=== PATIENT | male | born 1980 | race Two or more races ===

== ENCOUNTER 2025-01-18 11:18 | Inpatient (IN) | payer OTHER ==
[~2025-01-18] VITALS: Ht 180.3 cm; Wt 136.4 kg
[2025-01-18 12:11] LABS: BASOPHILS % (AUTO) 0.5 % (0.0-2.0); EOSINOPHILS % (AUTO) 1.3 % (1.0-6.0); HEMATOCRIT 40.2 % (41-53); HEMOGLOBIN 13.8 g/dL (13.5-17.5); LYMPHOCYTES # (AUTO) 1.9 K/uL (1.0-4.8); LYMPHOCYTES % (AUTO) 21.4 % (22.0-44.0); MEAN CORPUSCULAR HEMOGLOBIN 30.5 pg (26.0-34.0); MEAN CORPUSCULAR HGB CONC 34.3 G/dL (31.0-37.0); MEAN CORPUSCULAR VOLUME 89 fL (80-100); MONOCYTES # (AUTO) 0.8 K/uL (0.1-1.0); MONOCYTES % (AUTO) 9.5 % (2.0-9.0); NEUTROPHILS % (AUTO) 67.3 % (40.0-70.0); PLATELET COUNT (AUTO) 324 K/uL (150-450); RED BLOOD CELL COUNT(AUTO) 4.53 MIL/uL (4.50-5.90); RED CELL DISTRIBUTION WIDTH 14.1 % (11.5-14.5); WHITE BLOOD COUNT (AUTO) 8.9 K/uL (4.5-11.0)
[2025-01-18 12:26] LABS: ANION GAP 7 mmol/L (8-16); CALCIUM, TOTAL 8.8 mg/dL (8.8-10.5); CARBON DIOXIDE 28 mmol/L (22-29); CHLORIDE 103 mmol/L (98-107); CREATININE 1.28 mg/dL (0.60-1.30); GLOMERULAR FILTR. RATE CALC > 60 mL/min (>60); GLUCOSE,RANDOM 84 mg/dL (70-110); POTASSIUM 3.7 mmol/L (3.5-5.1); SODIUM SERUM 138 mmol/L (136-145); UREA NITROGEN, BLOOD 12 mg/dL (7-18)
[2025-01-18] MEDS: LIDOCAINE 1% 10 ML VIAL SQ ONE (12:54)
[2025-01-18] MEDS ORDERED: MAGNESIUM HYDROXIDE SUSPENSION 30 ML UDCUP PO PRN (13:15)
[2025-01-18] MEDS: POVIDONE-IODINE 10% 15 ML SOLUTION UD TP ONE (13:27)
[2025-01-18] MEDS: CeFAZolin 1 GM/DEXTROSE 50 ML IV ONE (13:45)
[2025-01-18] MEDS: ACETAMINOPHEN 325 MG TABLET PO PRN (14:29)
[2025-01-18] MEDS: PIPERACILLIN/TAZO 3.375 GM/D5W 50 ML IV ONE (14:29)
[2025-01-18 15:26] VITALS: BP 112/66; PULSE 72; RESP 18; TEMP 98.2; O2SAT 96
[2025-01-18] MEDS: VANCOMYCIN 1.75GM/WATER(PEG) 350 ML IV ONE (15:39)
[2025-01-18 18:13] LABS: APPEARANCE,URINE CLEAR (CLEAR); BILIRUBIN,URINE NEGATIVE (NEGATIVE); COLOR,URINE YELLOW (YELLOW); GLUCOSE, URINE (UA) NEGATIVE (NEGATIVE); LEUKOCYTE ESTERASE ,URINE NEGATIVE (NEGATIVE); NITRATE,URINE NEGATIVE (NEGATIVE); OCCULT BLOOD,URINE NEGATIVE (NEGATIVE); PROTEIN,URINE TRACE mg/dL (NEGATIVE); SPECIFIC GRAVITIY, URINE 1.019 (1.003-1.030); UROBILINOGEN,URINE <=1.0 mg/dL (<=1.0)
[2025-01-18 19:49] VITALS: BP 127/76; PULSE 72; RESP 18; TEMP 98.1; O2SAT 98
[2025-01-18] MEDS ORDERED: SODIUM CHLORIDE 0.9% 250 ML IV ONE (20:44)
[2025-01-18] MEDS: DOCUSATE SODIUM 100 MG CAPSULE PO SCH (20:53)
[2025-01-18] MEDS: PIPERACILLIN/TAZO 3.375 GM/D5W 50 ML IV SCH (20:53)
[2025-01-19] MEDS: VANCOMYCIN 1GM/WATER(PEG/NADA) 200 ML IV SCH
[2025-01-19 05:05] VITALS: BP 120/68; PULSE 77; RESP 18; TEMP 98.1; O2SAT 99
[2025-01-19 07:16] LABS: ANION GAP 7 mmol/L (8-16); CALCIUM, TOTAL 8.4 mg/dL (8.8-10.5); CARBON DIOXIDE 27 mmol/L (22-29); CHLORIDE 104 mmol/L (98-107); CREATININE 1.24 mg/dL (0.60-1.30); GLOMERULAR FILTR. RATE CALC > 60 mL/min (>60); GLUCOSE,RANDOM 87 mg/dL (70-110); POTASSIUM 3.7 mmol/L (3.5-5.1); SODIUM SERUM 138 mmol/L (136-145); UREA NITROGEN, BLOOD 11 mg/dL (7-18)
[2025-01-19 08:26] VITALS: BP 122/74; PULSE 74; RESP 18; TEMP 98.2; O2SAT 98
[2025-01-19] MEDS: FAMOTIDINE 20 MG TABLET PO SCH (09:09)
[2025-01-19 19:56] VITALS: BP 119/72; PULSE 78; RESP 20; TEMP 98.1; O2SAT 98
[2025-01-20 05:10] VITALS: BP 123/82; PULSE 74; RESP 18; TEMP 97.5; O2SAT 100
[2025-01-20 07:36] LABS: ANION GAP 7 mmol/L (8-16); CALCIUM, TOTAL 8.7 mg/dL (8.8-10.5); CARBON DIOXIDE 29 mmol/L (22-29); CHLORIDE 105 mmol/L (98-107); CREATININE 1.29 mg/dL (0.60-1.30); GLOMERULAR FILTR. RATE CALC > 60 mL/min (>60); GLUCOSE,RANDOM 82 mg/dL (70-110); POTASSIUM 3.6 mmol/L (3.5-5.1); SODIUM SERUM 141 mmol/L (136-145); UREA NITROGEN, BLOOD 13 mg/dL (7-18); VANCOMYCIN,RANDOM 15.7 mcg/mL (25.0-50.0)
[2025-01-20 08:19] VITALS: BP 111/70; PULSE 74; RESP 20; TEMP 98.4; O2SAT 97
[2025-01-20 20:54] VITALS: BP 122/75; PULSE 71; RESP 20; TEMP 97.5; O2SAT 96
[2025-01-21 00:30] VITALS: PULSE 62; RESP 15; O2SAT 97
[2025-01-21 04:20] VITALS: BP 119/72; PULSE 65; RESP 20; TEMP 98; O2SAT 96
[2025-01-21 08:36] LABS: ANION GAP 6 mmol/L (8-16); CALCIUM, TOTAL 8.8 mg/dL (8.8-10.5); CARBON DIOXIDE 28 mmol/L (22-29); CHLORIDE 106 mmol/L (98-107); CREATININE 1.17 mg/dL (0.60-1.30); GLOMERULAR FILTR. RATE CALC > 60 mL/min (>60); GLUCOSE,RANDOM 80 mg/dL (70-110); POTASSIUM 3.8 mmol/L (3.5-5.1); SODIUM SERUM 140 mmol/L (136-145); UREA NITROGEN, BLOOD 11 mg/dL (7-18)
[2025-01-21] MEDS: OxyCODONE HCL/ACETAMINOPHEN 5-325 MG TABLET PO PRN (09:36)
[2025-01-21 09:47] VITALS: BP 107/67; PULSE 73; RESP 19; TEMP 97.5; O2SAT 97
[2025-01-21 12:39] VITALS: BP 111/60; PULSE 77; RESP 18; TEMP 98; O2SAT 99
[2025-01-21] MEDS ORDERED: SODIUM CHLORIDE 0.9% 500 ML IV ONE (14:18)
[2025-01-21 14:41] LABS: BASOPHILS % (AUTO) 0.7 % (0.0-2.0); EOSINOPHILS % (AUTO) 2.6 % (1.0-6.0); HEMATOCRIT 43.3 % (41-53); HEMOGLOBIN 14.6 g/dL (13.5-17.5); LYMPHOCYTES # (AUTO) 1.7 K/uL (1.0-4.8); MEAN CORPUSCULAR HEMOGLOBIN 30.1 pg (26.0-34.0); MEAN CORPUSCULAR HGB CONC 33.6 G/dL (31.0-37.0); MEAN CORPUSCULAR VOLUME 89 fL (80-100); MONOCYTES # (AUTO) 0.4 K/uL (0.1-1.0); MONOCYTES % (AUTO) 9.1 % (2.0-9.0); NEUTROPHILS # (AUTO) 2.2 K/uL (1.8-7.7); NEUTROPHILS % (AUTO) 48.6 % (40.0-70.0); PLATELET COUNT (AUTO) 357 K/uL (150-450); RED BLOOD CELL COUNT(AUTO) 4.84 MIL/uL (4.50-5.90); RED CELL DISTRIBUTION WIDTH 13.8 % (11.5-14.5); WHITE BLOOD COUNT (AUTO) 4.4 K/uL (4.5-11.0)
[2025-01-21 19:47] VITALS: BP 116/69; PULSE 74; RESP 18; TEMP 97.9; O2SAT 95
[2025-01-21 22:50] VITALS: PULSE 63; RESP 18; O2SAT 96
[2025-01-22 04:34] VITALS: BP 141/84; PULSE 58; RESP 18; TEMP 97.9; O2SAT 96
[2025-01-22 07:45] LABS: ANION GAP 7 mmol/L (8-16); CALCIUM, TOTAL 8.8 mg/dL (8.8-10.5); CARBON DIOXIDE 27 mmol/L (22-29); CHLORIDE 106 mmol/L (98-107); CREATININE 1.22 mg/dL (0.60-1.30); GLOMERULAR FILTR. RATE CALC > 60 mL/min (>60); GLUCOSE,RANDOM 75 mg/dL (70-110); POTASSIUM 3.7 mmol/L (3.5-5.1); SODIUM SERUM 140 mmol/L (136-145); UREA NITROGEN, BLOOD 14 mg/dL (7-18); VANCOMYCIN,RANDOM 19.6 mcg/mL (25.0-50.0)
[2025-01-22 08:04] VITALS: BP 135/96; PULSE 61; RESP 18; TEMP 97.2; O2SAT 98
[2025-01-22] MEDS: SULFAMETHOX/TRIMETH DS 800-160 MG/TABLET PO SCH (09:15)
[2025-01-22 19:13] VITALS: BP 133/78; PULSE 82; RESP 19; TEMP 98; O2SAT 94
[2025-01-22] MEDS ORDERED: VANCOMYCIN 1.5 GM/WATER(PEG) 300 ML IV SCH (20:00)
[2025-01-23 04:06] VITALS: BP 139/83; PULSE 60; RESP 19; TEMP 97.3; O2SAT 98
[2025-01-23 08:13] VITALS: BP 137/90; PULSE 65; RESP 18; TEMP 97.5; O2SAT 100
[2025-01-23] MEDS ORDERED: SULF-261 PO (12:21)
[2025-01-23] MEDS ORDERED: ACET-2247 PO (12:22)
[2025-01-23] MEDS ORDERED: MAGN-169 PO (12:24)
== END 2025-01-23 14:40 | DRG 603 ==
LOC: EMS 11:18 → EDH 13:32 → 6N 14:56
PROVIDERS: ADMIT Internal Medicine; ATTEND Internal Medicine
PROC: 0H98XZZ Drainage of Buttock Skin, External Approach (ICD-10-PCS; 2025-01-18)
PROC: 5A09357 Assistance with Respiratory Ventilation, Less than 24 Consecutive Hours, Continuous Positive Airway Pressure (ICD-10-PCS; principal; 2025-01-21)
DX: L02.31 Cutaneous abscess of buttock (principal); E44.0 Moderate protein-calorie malnutrition; Z68.41 Body mass index [BMI] 40.0-44.9, adult; G47.33 Obstructive sleep apnea (adult) (pediatric); I10 Essential (primary) hypertension; E66.01 Morbid (severe) obesity due to excess calories
CPT/HCPCS: 10060; 71045; 80048; 80202; 81003; 85025; 87070; 87205; 93005; 94660; 99285; J0690; J2543; J3490; J7040; J7050; 36415-L1; 36415-TC